=== PATIENT | male | born 1990 | race Caucasian/White ===

== ENCOUNTER 2017-12-03 05:42 | Day surgery (SDC) | payer OTHER ==
[2017-11-30 13:24] LABS: INR 0.94; PROTIME 12.7 Sec (11.9-14.9)
[2017-11-30 13:26] LABS: PARTIAL THROMBOPLASTIN TIME 29.8 Sec (25.0-35.0)
[2017-12-03] MEDS ORDERED: LACTATED RINGER'S 1,000 ML IV* (06:00)
[2017-12-03] MEDS ORDERED: POVIDONE IODINE 10% 28.4 GM OINT TOP (06:00)
[2017-12-03] MEDS ORDERED: CEFAZOLIN 2 GM/50 ML (PMX) 50 ML IVPB (06:00)
[2017-12-03] MEDS ORDERED: PROPOFOL 20 ML (06:46)
[2017-12-03] MEDS ORDERED: ROCURONIUM 50 MG INJ (06:48)
[2017-12-03] MEDS ORDERED: THROMBIN 5000 UNIT VIAL (06:54)
[2017-12-03] MEDS ORDERED: LIDOCAINE 2% (SDV) 5 ML INJ (07:00)
[2017-12-03] MEDS ORDERED: LABETALOL HCL 20MG INJ (07:18)
[2017-12-03] MEDS ORDERED: HYDROmorphONE 2 MG/ML SYG (07:22)
[2017-12-03] MEDS: POLYMYXIN/BACITRACIN 1L IRRIG (07:50)
[2017-12-03] MEDS: BUPIVACAINE 0.25% (MPF) 30 ML INJ (07:50)
[2017-12-03] MEDS ORDERED: ONDANSETRON 4 MG INJ (08:03)
[2017-12-03] MEDS ORDERED: hydrALAzine 20 MG INJ (08:03)
[2017-12-03] MEDS ORDERED: DEXAMETHASONE 4 MG/ML 1 ML INJ (08:03)
[2017-12-03] MEDS ORDERED: SUGAMMADEX SODIUM 200 MG/2 ML VIAL IV (08:21)
[2017-12-03] MEDS: LABETALOL HCL 20MG INJ IV ×3 (08:53→09:21)
[2017-12-03] MEDS: MEPERIDINE 25 MG INJ IV (08:53)
[2017-12-03] MEDS: ONDANSETRON 4 MG INJ IV (08:54)
[2017-12-03] MEDS ORDERED: OXYCODONE/ACETAMINOPHEN (5/325) TAB PO ×2 (09:00)
[2017-12-03] MEDS ORDERED: ALBUTEROL 0.083% (NEB) 2.5 MG/3 ML AMP HHN (09:00)
[2017-12-03] MEDS ORDERED: FENTAnyl 50 MCG/ML VIAL IV ×3 (09:00)
[2017-12-03] MEDS ORDERED: HYDROmorphONE 1 MG/5 ML IV SYRINGE IV (09:00)
[2017-12-03] MEDS ORDERED: METOCLOPRAMIDE 10 MG INJ IV (09:00)
[2017-12-03] MEDS ORDERED: MIDAZOLAM 1 MG/ML 2 ML INJ IV (09:00)
[2017-12-03] MEDS ORDERED: DIPHENHYDRAMINE 50 MG INJ IV (09:00)
[2017-12-03] MEDS ORDERED: EPHEDrine SULFATE 50 MG/5 ML SYG IV (09:00)
[2017-12-03] MEDS ORDERED: hydrALAzine 20 MG INJ IV (09:00)
[2017-12-03] MEDS ORDERED: KETOROLAC 30 MG INJ IV (09:00)
[2017-12-03] MEDS: HYDROmorphONE 1 MG/5 ML IV SYRINGE IV ×2 (09:03→09:21)
[2017-12-03] MEDS: ACETAMINOPHEN 325 MG TAB PO (11:42)
== END 2017-12-03 14:00 | disposition home or self-care (01) ==
LOC: SDS 05:42
DX: M51.27 Other intervertebral disc displacement, lumbosacral region (principal); I10 Essential (primary) hypertension
CPT/HCPCS: 63030; 72020; 85610; 85730; 86850; 86900; 86901; 86920; 97161